=== PATIENT | female | born 1950 | race Caucasian/White ===

== ENCOUNTER → 2016-04-02 | Outpatient (CLI) | payer MEDICARE ==
[~2016-04-02] MED LIST: ACHD5005 PO; ACHYD1T PO; AMOX500C2 PO; AUGMENTIN PO; AZIT-21 PO; BENZ200C25 PO; BLAC20TA PO; Berberine; Black Cohosh PO; CEFD300C3 PO; DCS100C PO; EST.625T PO; EST30C PV; ESTR0.3T PO; FURO20TA4 PO; GINK120C PO; HCT25T PO; HYDR-34 PO; HYDR-3454 PO; HYDR-3583 PO; IBP800T PO; LEVO500T69 PO; LSRT50T PO; LVF500T PO; MTF500T PO; POTA10CA43 PO; RIVA15TA PO; RIVA20TA4 PO; TRM50T PO
--- NOTE | 2016-04-03 09:22 | Diagnostic Imaging Report ---
EXAMINATION: Bilateral screening mammogram with a Computer Aided Detection (CAD) system. INDICATION: Screening. PERSONAL HISTORY: No current complaints stated on the questionnaire. COMPARISON: 10/22/2014. FINDINGS: The breasts are composed of scattered fibroglandular densities. There are scattered benign-appearing calcifications. Allowing for technique and positional differences, no suspicious change is seen. IMPRESSION: No significant change. ACR BI-RADS Category 2: Benign findings. Result letter will be mailed to the patient. Note: At least 10% of breast cancer is not imaged by mammography. Dictated by: Dictated on workstation # [id number]
== END ==
LOC: RAD 14:43
PROVIDERS: ATTEND Nurse Practitioner Family
DX: Z12.31 Encounter for screening mammogram for malignant neoplasm of breast (principal)

== ENCOUNTER 2016-04-12 06:18 | Outpatient (CLI) | payer MEDICARE ==
[~2016-04-12] VITALS: Ht 180.3 cm; Wt 99.8 kg
== END 2016-04-12 13:36 ==
LOC: PREOP 06:18
PROVIDERS: ATTEND Surgery
DX: Z01.818 Encounter for other preprocedural examination (principal); Z80.0 Family history of malignant neoplasm of digestive organs

== ENCOUNTER 2016-04-16 10:01 | Day surgery (SDC) | payer MEDICARE ==
[~2016-04-16] VITALS: Ht 180.3 cm; Wt 99.8 kg
[2016-04-16] MEDS ORDERED: NS IV 500 ML 500 ML ONE (10:06)
[2016-04-16 10:51] VITALS: BP 167/77
[2016-04-16] MEDS ORDERED: FLUMAZENIL (ROMAZICON) 0.1 MG/ML 5 ML VIAL INJ PRN (11:00)
[2016-04-16] MEDS ORDERED: NALOXONE 0.4 MG/ML 1 ML (NARCAN) VIAL IVP PRN (11:00)
[2016-04-16] MEDS ORDERED: NS IV 500 ML 500 ML IV PRN (11:00)
[2016-04-16] MEDS ORDERED: MIDAZOLAM 2 MG/2 ML (VERSED) VIAL ONE ×4 (11:04→11:25)
[2016-04-16] MEDS ORDERED: fentaNYL INJECTION 100 MCG/2 ML AMP ONE ×2 (11:04→11:25)
[2016-04-16] MEDS: fentaNYL INJECTION 100 MCG/2 ML AMP IVP PRN ×3 (11:10→11:18)
[2016-04-16] MEDS: MIDAZOLAM 2 MG/2 ML (VERSED) VIAL IVP PRN ×3 (11:11→11:20)
--- NOTE | 2016-04-16 11:19 | Pre-Op Note & Conscious Sedat ---
Pre-Operative Progress Note H&P Reviewed The H&P was reviewed, patient examined and no changes noted. Date H&P Reviewed: Apr 16, 2016 Time H&P Reviewed: 11:19 Pre-Op Diagnosis: screening. Family history of colon cancer Conscious Sedation Pre-Proced ASA Class: 2 Airway Mallampati Classification: ([place] appropriate class) I. II. III, IV Lungs Heart ASA score ASA 1: a normal healthy patient ASA 2: a patient with a mild systemic disease (mid diabetes, controlled hypertension, obesity ASA 3: a patient with a severe systemic disease that limits activity (angina , COPD, prior Myocardial infarction) ASA 4: a patient with an incapacitating disease that is a constant threat to life (CHF, renal failure) ASA 5: a moribund patient not expected to survive 24 hrs. (ruptured aneurysm) ASA 6: a declared brain patient whose organs are being harvested. For emergent operations, add the letter E after the classification Grade 2 Sedation Plan: Discussed options with patient/fam Note The patient is an appropriate candidate to undergo the planned procedure, sedation, and anesthesia. The patient immediately re-assessed prior to indication. LUKE CANALES MD Apr 16, 2016 11:19 am
--- NOTE | 2016-04-16 11:31 | Discharge Inst-Simple/Standard ---
Discharge Inst-Standard Discharge Medications New, Converted or Re-Newed RX: Other Patient Instructions/Follow Up Plan of Care/Instructions/FU: repeat colonoscopy in 5 years Activity as Tolerated: Yes Discharge Diet: ADA Diet LUKE CANALES MD Apr 16, 2016 11:31
--- NOTE | 2016-04-16 11:31 | Progress Note-Post Operative ---
Post-Operative Progess Note Pre-Operative Diagnosis screening. Family history of colon cancer Post-Operative Diagnosis normal exam Post-Op Procedure Note Date of Procedure: Apr 16, 2016 Name of Procedure: colonoscopy to cecum Anesthesia Type sedation LUKE CANALES MD Apr 16, 2016 11:31
[2016-04-16 12:00] VITALS: BP 143/73
[2016-04-16 12:30] VITALS: BP 142/67
[2016-04-16 12:40] VITALS: BP 142/67
--- NOTE | 2016-04-16 12:53 | PROCEDURE REPORT ---
PROCEDURE PHYSICIAN: LUKE CANALES DATE OF PROCEDURE: 04/16/2016 PROCEDURE: Screening colonoscopy. SURGEON: Ab INDICATION FOR THE PROCEDURE: This lady came in for screening colonoscopy. She reported a positive family history of colon cancer. An informed consent was obtained after reviewing the procedure in detail. . DESCRIPTION OF PROCEDURE: She was placed in left lateral decubitus position and her vital signs were monitored. Conscious sedation was achieved using Versed and fentanyl. Digital rectal examination was unremarkable. The colonoscope was then introduced into the rectum and advanced all the way up to the cecum. The scope was then withdrawn slowly and the mucosa examined in a systematic fashion. There was no abnormality. She tolerated the procedure well and was taken back to the nursing area in a stable condition. IMPRESSION: 1. Normal screening colonoscopy. 2. Positive family history. Recommend repeating in 5 years. Job ID: [id number] Dictated Date: 04/16/2016 11:30:46 [employer] Date: 04/16/2016 12:50:17 / [facility]ARBER
== END 2016-04-16 12:40 | disposition home or self-care (01) ==
LOC: ENDO 10:01
PROVIDERS: ATTEND Surgery
DX: Z12.11 Encounter for screening for malignant neoplasm of colon (principal); Z80.0 Family history of malignant neoplasm of digestive organs; E11.9 Type 2 diabetes mellitus without complications
CPT/HCPCS: 82962

== ENCOUNTER → 2016-04-24 | Outpatient (CLI) | payer MEDICARE ==
--- NOTE | 2016-04-24 13:16 | Diagnostic Imaging Report ---
PROCEDURE: US Thyroid. TECHNIQUE: Multiple real-time grayscale images were obtained of the thyroid in various projections. INDICATION: Multinodular goiter. COMPARISON: Exam compared with study of 10/22/2014. FINDINGS: Right thyroid lobe measured 5.9 x 3.1 x 2.5 cm, unchanged from prior. Left lobe is 6.1 x 2.2 x 1.6 cm, increased from prior when it measured 5.1 x 1.6 x 2.0 cm. There are multiple bilateral thyroid nodules, the largest mass in the right lobe measures 2.5 x 2.0 cm today and does show some punctate calcifications. It is solid although heterogeneous. It previously measured 2.1 x 2.0 cm, slightly increased. The midline isthmic nodule of 1.9 cm long axis is unchanged. The largest left lobe mass in glf-ri-pteux pole is 2.3 x 1.8 x 1.8 cm, previously measured 2.0 x 0.9 x 1.5 cm. It shows mixed solid and cystic components. IMPRESSION: Increased thyromegaly in the left lobe. The largest bilateral thyroid nodules measured a few millimeter and larger than on prior but no new dominant lesion. Midline isthmic mass is unchanged. Additional smaller lesions have not appreciably changed. Dictated by: Dictated on workstation # [id number]
== END ==
LOC: RAD 11:09
PROVIDERS: ATTEND Otolaryngology Otolaryngology/Facial Plastic Surgery
DX: E04.2 Nontoxic multinodular goiter (principal)
CPT/HCPCS: 76536

== ENCOUNTER → 2016-10-08 | Outpatient (CLI) | payer MEDICARE | LOC: CARD 15:56 | PROVIDERS: ATTEND Nurse Practitioner Family | DX: R07.89 Other chest pain (principal); R05 Cough | CPT/HCPCS: 93005 ==

== ENCOUNTER → 2016-12-06 | Outpatient (CLI) | payer MEDICARE | LOC: CARD 10:50 | PROVIDERS: ATTEND Internal Medicine Cardiovascular Disease | DX: R06.02 Shortness of breath (principal); I10 Essential (primary) hypertension; I82.409 Acute embolism and thrombosis of unspecified deep veins of unspecified lower extremity; J98.4 Other disorders of lung; G47.33 Obstructive sleep apnea (adult) (pediatric); G47.10 Hypersomnia, unspecified | CPT/HCPCS: 93306 ==

== ENCOUNTER → 2016-12-17 | Outpatient (CLI) | payer MEDICARE ==
[~2016-12-17] VITALS: Ht 177.8 cm; Wt 107.5 kg
[~2016-12-17] MED LIST changes: +CATHETER FLUSH 10 ML SYR IV PRN; +REGADENOSON 0.4 MG/5 ML SYR (LEXISCAN) IV ONE
[2016-12-17 09:49] VITALS: BP 138/82
== END ==
LOC: CARD 08:21
PROVIDERS: ATTEND Internal Medicine Cardiovascular Disease
DX: R06.02 Shortness of breath (principal); I10 Essential (primary) hypertension; J98.4 Other disorders of lung; G47.33 Obstructive sleep apnea (adult) (pediatric)
CPT/HCPCS: 78452; 93017

== ENCOUNTER → 2017-04-15 | Outpatient (CLI) | payer MEDICARE ==
[~2017-04-15] MED LIST changes: -CATHETER FLUSH 10 ML SYR IV PRN; -REGADENOSON 0.4 MG/5 ML SYR (LEXISCAN) IV ONE
--- NOTE | 2017-04-15 16:03 | Diagnostic Imaging Report ---
Indication: Routine screening. Comparison: Comparison is made with prior mammogram from 04/02/2016 and 10/22/2014. Findings: Scattered fibroglandular densities are noted throughout both breasts. The parenchymal pattern is stable. No dominant mass or malignant-appearing microcalcifications are seen. There are benign calcifications in both breasts. The axillae are unremarkable. Impression: BI-RADS category 2. No mammographic features suspicious for malignancy are identified. ACR BI-RADS Category 2: Benign findings. Result letter will be mailed to the patient. Note: At least 10% of breast cancer is not imaged by mammography. Dictated by: Dictated on workstation # [id number]
== END ==
LOC: RAD 15:14
PROVIDERS: ATTEND Family Medicine
DX: Z12.31 Encounter for screening mammogram for malignant neoplasm of breast (principal)
CPT/HCPCS: 77067

== ENCOUNTER → 2018-04-29 | Outpatient (CLI) | payer MEDICARE ==
--- NOTE | 2018-04-29 16:22 | Diagnostic Imaging Report ---
INDICATION: Routine screening. COMPARISON: 04/15/2017 and 04/02/2016. TECHNIQUE: 2D and 3D bilateral screening mammography was performed with CAD. FINDINGS: Scattered fibroglandular densities are identified bilaterally. There is a small nodular density noted in the lower outer aspect of the right breast which appears new when compared to the prior exam. This appears to be fairly well circumscribed and likely benign. Even so, additional views are recommended. Scattered benign calcifications are seen in both breasts. No spiculated mass is identified. No malignant appearing microcalcifications are identified. The axillae are unremarkable. IMPRESSION: New small nodular density in the lower outer right breast. Additional views are recommended for further evaluation. ACR BI-RADS Category 0: Incomplete. (Needs additional imaging evaluation). Result letter will be mailed to the patient. Note: At least 10% of breast cancer is not imaged by mammography. Dictated by: Dictated on workstation # [id number]
== END ==
LOC: RAD 13:28
PROVIDERS: ATTEND Nurse Practitioner Family
DX: Z12.31 Encounter for screening mammogram for malignant neoplasm of breast (principal); R92.8 Other abnormal and inconclusive findings on diagnostic imaging of breast
CPT/HCPCS: 77067

== ENCOUNTER → 2018-05-02 | Outpatient (CLI) | payer MEDICARE ==
--- NOTE | 2018-05-02 11:33 | Diagnostic Imaging Report ---
INDICATION: Right breast density. Patient presents for additional views. COMPARISON: Prior screening mammogram from 04/29/2018. TECHNIQUE: Unilateral right 2D and 3D diagnostic mammography was performed. This includes spot compression CC and ML as well as conventional 90 degree lateral views. FINDINGS: The additional views confirm a tiny circumscribed ovoid nodular density in the lower outer right breast approximately 10 cm from the nipple. This has fairly benign features and may represent a small cyst or intra-parenchymal lymph node. No suspicious calcifications are seen. IMPRESSION: Tiny circumscribed nodule in the lower outer right breast 10 cm from the nipple. This has fairly benign features. Even so, further evaluation of the right breast with ultrasound is recommended and will be performed today. ACR BI-RADS Category 0: Incomplete. (Needs additional imaging evaluation). Result letter will be mailed to the patient. Note: At least 10% of breast cancer is not imaged by mammography. Dictated by: Dictated on workstation # [id number]
--- NOTE | 2018-05-02 11:41 | Diagnostic Imaging Report ---
INDICATION: Right breast density. This study is performed for further evaluation. COMPARISON: Recent diagnostic study performed earlier this same day. FINDINGS: Sonographic interrogation of the lower outer right breast was performed. There are tiny circumscribed hypoechoic nodules at the 8:30 location, 10 cm from the nipple. In aggregate, these measure approximately 4 mm x 5 mm x 3 mm. This appears to represent a tiny cluster of cysts. This does correlate in size, appearance, and location to the density noted on the mammogram. No other abnormalities are seen. IMPRESSION: Probable tiny cluster of cysts at the 8:30 location of the right breast corresponding to the mammographic density. The patient may return to routine annual screening mammography. ACR BI-RADS Category 2: Benign findings. Result letter will be mailed to the patient. Note: At least 10% of breast cancer is not imaged by mammography. Dictated by: Dictated on workstation # [id number]
== END ==
LOC: RAD 10:27
PROVIDERS: ATTEND Nurse Practitioner Family
DX: R92.2 Inconclusive mammogram (principal)

== ENCOUNTER → 2018-07-07 | Outpatient (CLI) | payer MEDICARE | LOC: LAB 19:41 | PROVIDERS: ATTEND Nurse Practitioner Family | DX: R19.7 Diarrhea, unspecified (principal) | CPT/HCPCS: 82274; 87015; 87045; 87046; 87324; 87328; 87329; 87449; 87899 ==

== ENCOUNTER → 2019-01-05 | Outpatient (CLI) | payer MEDICARE ==
--- NOTE | 2019-01-05 09:19 | Diagnostic Imaging Report ---
EXAMINATION: CT Chest without contrast. TECHNIQUE: Multiple contiguous axial images were obtained through the chest without the use of intravenous contrast. All CT scans use one or more of the following dose optimizing techniques: automated exposure control, MA and/or KvP adjustment based on a patient size and exam type, or iterative reconstruction. HISTORY: DYSPNEA COMPARISON: 09/04/2013 FINDINGS: The lungs are clear without edema or pneumonia. No pleural effusion or pneumothorax. No suspicious nodules. Heart size is normal. No pericardial effusion. Aorta is normal in caliber. There is no axillary or supraclavicular lymphadenopathy. There is no mediastinal lymphadenopathy. Liver is mildly steatotic. There are no suspicious osseus lesions. IMPRESSION: 1. Clear lungs. Dictated by: Dictated on workstation # [id number]
== END ==
LOC: RAD 08:32
PROVIDERS: ATTEND Nurse Practitioner Family
DX: J45.909 Unspecified asthma, uncomplicated (principal); J98.4 Other disorders of lung
CPT/HCPCS: 71250

== ENCOUNTER → 2019-05-08 | Outpatient (CLI) | payer MEDICARE ==
--- NOTE | 2019-05-11 10:17 | Diagnostic Imaging Report ---
INDICATION: Routine screening. Comparison is made with prior mammogram from 04/29/2018 and 04/15/2017. 2-D and 3-D bilateral screening mammography was performed with CAD. Scattered fibroglandular densities are identified bilaterally. There are benign calcifications bilaterally. Fibronodular parenchyma pattern appears stable. No new mass or malignant appearing microcalcifications are seen. No malignant appearing microcalcifications are seen. Axillae are unremarkable. IMPRESSION: BI-RADS Category 2 No mammographic features suspicious for malignancy are identified. ACR BI-RADS Category 2: Benign findings. Result letter will be mailed to the patient. Note: At least 10% of breast cancer is not imaged by mammography. Dictated by: Dictated on workstation # [id number]
== END ==
LOC: RAD 10:45
PROVIDERS: ATTEND Nurse Practitioner Family
DX: Z12.31 Encounter for screening mammogram for malignant neoplasm of breast (principal)
CPT/HCPCS: 77067

== ENCOUNTER → 2020-05-17 | Outpatient (CLI) | payer MEDICARE ==
--- NOTE | 2020-05-17 12:45 | Diagnostic Imaging Report ---
INDICATION: Routine screening. COMPARISON: 05/08/2019 and 04/29/2018. TECHNIQUE: 2D and 3D bilateral screening mammography was performed with CAD. FINDINGS: Scattered fibroglandular densities are identified bilaterally. A fibronodular parenchymal pattern is again noted. This appears to be fairly stable. There are scattered benign calcifications. No dominant mass or malignant appearing microcalcifications are seen. The axillae are unremarkable. IMPRESSION: No mammographic features suspicious for malignancy are identified. ACR BI-RADS Category 2: Benign findings. Result letter will be mailed to the patient. Note: At least 10% of breast cancer is not imaged by mammography. Dictated by: Dictated on workstation # [id number]
== END ==
LOC: RAD 09:45
PROVIDERS: ATTEND Nurse Practitioner Family
DX: Z12.31 Encounter for screening mammogram for malignant neoplasm of breast (principal)
CPT/HCPCS: 77063; 77067

== ENCOUNTER → 2020-10-18 | Outpatient (CLI) | payer MEDICARE | LOC: CARD 11:00 | PROVIDERS: ATTEND Physician Assistant | DX: I35.1 Nonrheumatic aortic (valve) insufficiency (principal); I10 Essential (primary) hypertension | CPT/HCPCS: 93306 ==

== ENCOUNTER → 2020-12-14 | Outpatient (CLI) | payer MEDICARE ==
[~2020-12-14] VITALS: Ht 177 cm; Wt 100.0 kg
[~2020-12-14] MED LIST changes: +CATHETER FLUSH 10 ML SYR IV PRN; +REGADENOSON 0.4 MG/5 ML SYR (LEXISCAN) IV ONE
[2020-12-14 09:18] VITALS: BP 167/88
[2020-12-14 09:21] VITALS: BP 171/77
--- NOTE | 2020-12-14 12:51 | Cardiology Stress Test Report ---
Stress Test Report Date of Procedure/Referring: Date of Procedure: Dec 14, 2020 Magdalena Silvestre Admitting Physician Kyara Smith MD Indications: HTN Baseline Heart Rate: 65 Baseline Blood Pressure: Blood Pressure Systolic: 171 Blood Pressure Diastolic: 77 Baseline Vitals Vital Signs Date Time Temp Pulse Resp B/P (MAP) Pulse Ox O2 Delivery O2 Flow Rate FiO2 12/14/20 09:18 65 167/88 (114) 12/14/20 09:21 19 99 Room Air Baseline EKG: Baseline EKG: NSR Summary After explaining the procedure to the patient, she signed a consent and then brought to the stress nuclear laboratory. Patient received 0.4 mg Lexiscan for stress test, ECG, heart rate and blood pressure were monitored continuously. Resting and stress dose of radio tracer were injected, imaging was acquired and reviewed in short axis, horizontal long axis and vertical long axis views. TID: 0.98 SSS: 5 SDS: 5 EF: 78 1. Patient tolerated Lexiscan well 2. Breast attenuation affecting the quality of the images, there is mild d ecrease uptake at the mid to apical inferior wall with mild reversibility 3. Normal left ventricular size, EF 78% RIVAS LUGO MD Dec 14, 2020 12:51
== END ==
LOC: CARD 07:45
PROVIDERS: ATTEND Physician Assistant
DX: I10 Essential (primary) hypertension (principal)
CPT/HCPCS: 78452; 93017; A9502

== ENCOUNTER 2020-12-28 09:00 | Day surgery (SDC) | payer MEDICARE ==
[~2020-12-28] VITALS: Ht 180 cm; Wt 102.0 kg
[2020-12-28 07:23] VITALS: BP 158/95
[2020-12-28 07:33] LABS: HEMATOCRIT 47 % (35-52); HEMOGLOBIN 15.4 g/dL (11.5-16.0); MEAN CORPUSCULAR HEMOGLOBIN 29 pg (25-34); MEAN CORPUSCULAR HGB CONC 33 g/dL (32-36); MEAN CORPUSCULAR VOLUME 88 fL (80-99); MEAN PLATELET VOLUME 9.7 fL (9.0-12.2); PLATELET COUNT 271 10^3/uL (130-400); WHITE BLOOD COUNT 7.1 10^3/uL (4.3-11.0)
[2020-12-28 07:33] LABS: BILIRUBIN,URINE NEGATIVE (NEGATIVE); CLARITY,URINE CLEAR; COLOR,URINE YELLOW; GLUCOSE, URINE (UA) 3+ (NEGATIVE); KETONES,URINE NEGATIVE (NEGATIVE); LEUKOCYTE ESTERASE ,URINE NEGATIVE (NEGATIVE); NITRITE,URINE POSITIVE (NEGATIVE); PH,URINE 5.5 (5-9); PROTEIN,URINE NEGATIVE (NEGATIVE)
[2020-12-28 07:44] LABS: INR 0.9 (0.8-1.4); PROTHROMBIN TIME PATIENT 12.5 SEC (12.2-14.7)
[2020-12-28 07:46] LABS: BACTERIA,URINE FEW /HPF; SQUAMOUS EPITHELIAL CELL,UR 0-2 /HPF
[2020-12-28 08:10] LABS: ALBUMIN 4.2 GM/DL (3.2-4.5); BILIRUBIN,TOTAL 1.2 MG/DL (0.1-1.0); CALCIUM 9.5 MG/DL (8.5-10.1); CREATININE SERUM 1.04 MG/DL (0.60-1.30); POTASSIUM 4.2 MMOL/L (3.6-5.0)
--- NOTE | 2020-12-28 08:31 | Diagnostic Imaging Report ---
INDICATION: Chest pain, pre-heart catheter Portable chest 7:48 AM Heart size and pulmonary vascularity are normal. Lungs are clear. There are no effusions or pneumothoraces. IMPRESSION: No acute abnormalities in the chest. Dictated by: Dictated on workstation # [id number]
[~2020-12-28 09:00] MED LIST changes: +ACET325T38 PO; +ASPI-1238 PO; +BERBERINE PO; -CATHETER FLUSH 10 ML SYR IV PRN; +EMPA10TA PO; +FLUT1DIS26 IH; +HEParin (CATH LAB) 2,000 ML IV ONE; +HEParin 1000 UNIT/ML (10ML VIAL) FOR BOLUS ONE; +LACT1CAP81 PO; +LIDOCAINE 1% INJ 20 ML 20 ML VIAL ONE; +LINA5TAB PO; +LISI10TA25 PO; +MAGN400C PO; +METH5TAB5 PO; +MIDAZOLAM 5 MG/5 ML (VERSED) VIAL ONE; +NITRO DRIP 25000 MCG/D5W 250 ML IV ONE; +NS IV 1000 ML 1,000 ML IV SCH; +NS IV 1000 ML 1,000 ML ONE; -REGADENOSON 0.4 MG/5 ML SYR (LEXISCAN) IV ONE; +UBID100C17 PO; +VERAPAMIL 5 MG/2 ML (CALAN) VIAL IV ONE; +[UNRECOGNIZED DRUG - OTHER] PO; +diphenhydrAMINE 50 MG/ML INJ (BENADRYL) ONE; +fentaNYL INJ 100 MCG/2 ML AMP ONE; +methylPREDNISolone 125 MG (Solu-MEDROL) VIAL ONE
--- NOTE | 2020-12-28 09:16 | Conscious Sedation/ASA ---
Conscious Sedation Pre-Proced Time 09:16 ASA Score 3 For ASA 3 and 4: Consider anesthesia and medical clearance. Also, for patients with a history of failed moderate sedation consider anesthesia. Airway Lungs Heart ASA score ASA 1: a normal healthy patient ASA 2: a patient with a mild systemic disease (mid diabetes, controlled hypertension, obesity x ASA 3: a patient with a severe systemic disease that limits activity (angina, COPD, prior Myocardial infarction) ASA 4: a patient with an incapacitating disease that is a constant threat to life (CHF, renal failure) ASA 5: a moribund patient not expected to survive 24 hrs. (ruptured aneurysm) ASA 6: a declared brain- patient whose organs are being harvested. For emergent operations, add the letter E after the classification Mallampati Classification Grade 3 Sedation Plan Analgesia, Amnesia, Plan communicated to team members, Discussed options with patient/fam, Discussed risks with patient/fam The patient is an appropriate candidate to undergo the planned procedure, sedation, and anesthesia. The patient immediately re-assessed prior to indication. RIVAS LUGO MD Dec 28, 2020 09:16
--- NOTE | 2020-12-28 09:18 | Discharge Inst-Post CATH ---
Discharge Inst-CATH/EP Problems Reviewed?: Yes Post Cardiac Cath/EP D/C Inst Follow Up/Plan Appointment with Dr. Rivero's office in 2 to 4 weeks <b>CARDIAC CATH/EP PROCEDURE DISCHARGE INSTRUCTIONS</b> ACTIVITY * Go Home directly and rest. * Limit activity of the leg (or wrist if it was used) for 7 days including aer obics, swimming, jogging, bicycling, etc. * Restrict stair-climbing for 7 days if possible, if not, climb up with your non-cath leg, then bring together on the same step. * Avoid lifting, pushing, pulling or excessive movement of the affected extremi ty for 7 days. * Customary sexual activity may be resumed after 2 days-use caution not to use a position that strains or causes pain to the affected extremity. * No driving for 24 hours. * NO SMOKING. * Avoid straining for bowel movements for 7 days. * Gentle walking on level ground is allowed. * Returning to work will depend on the type of procedure and the results. Your doctor will discuss this with you. CALL YOUR DOCTOR FOR ANY OF THE FOLLOWING: *If bleeding from the puncture site occurs- Apply gentle pressure to site with clean cloth and call your doctor or EMS. * If a knot or lump forms under the skin, increases in size, or causes pain. * If bruising appears to be worsening or moving further down your leg instead of disappearing. * Temperature above 101 F. CARE OF YOUR GROIN INCISION; * Bruising or purple discoloration of the skin near the puncture site is common. * You may shower only, no bathtub bathing for 5 days. Be careful to avoid slipping as your leg may feel stiff. * If a closure device was used on your femoral artery, please see the attached guide regarding care of the device and your leg. * Leave dressing on FOR 24 hours. CARE OF YOUR WRIST INCISION; * Bruising or purple discoloration of the skin near the puncture site is common. * You may shower. * DO NOT submerge wrist. * Leave dressing on FOR 24 hours. RIVAS RIVERO MD Dec 28, 2020 09:17
--- NOTE | 2020-12-28 09:20 | Cardiac Cath Report ---
Cardiac Cath Report Physician (s)/Account Analyst (s) Physician RIVAS LUGO MD Pre-Procedure Diagnosis Pre-Procedure Diagnosis: Coronary artery disease Post-Procedure Note Procedure Start Date: Dec 28, 2020 Name of Procedure: Left heart catheterization Findings/Procedure Note PROCEDURE NOTE: 70-year-old lady with multiple risk factors for coronary artery disease, had an abnormal stress test, scheduled for cardiac catheterization possible PTCA. After explaining the procedure to the patient, all pros and cons were explained, all questions were answered. The patient signed the consent and then she was placed on the cardiac catheterization laboratory. Groin was prepped SL fashion local anesthesia was used. Sheath placed in the right radial artery, [place] catheter advanced to the left ventricular cavity, pressure was measured, pullb ack LV to aorta was done, engaged the right and left coronary system and selective angiogram was done. At the end of the procedure the sheath was removed. Vascular band used FINDINGS: Hemodynamics LV 128/21, end-diastolic pressure of 21 Aorta 131/73 mean of 100 ANATOMY: Left Main is free of obstructive disease Left Anterior Descending had mild disease at the midportion nonobstructive disease Left Circumflex has mild disease nonobstructive disease Right Coronary Artery is dominant artery with mild disease nonobstructive disease LV Gram was not done, pressure was measured CONCLUSION: 1. Mild coronary artery disease nonobstructive disease 2. Mildly elevated left ventricular end-diastolic pressure DISCUSSION AND RECOMMENDATION: Medical therapy is recommended no intervention is warranted Anesthesia Type: Conscious Sedation Estimated blood loss (mL): 5 ml Contrast Amount: 20 ml Total Radiation Dose: 275 mGy Post-Procedure Diagnosis Post-operative diagnosis: Chest pain Coronary artery disease Hypertension Hyperlipidemia RIVAS LUGO MD Dec 28, 2020 09:20
[2020-12-28] MEDS ORDERED: NS IV 1000 ML 1,000 ML IV SCH (09:30)
[2020-12-28 09:50] VITALS: BP 121/69
[2020-12-28 12:00] VITALS: BP 138/75
== END 2020-12-28 12:50 | disposition home or self-care (01) ==
LOC: CATH 09:00 → CSD 09:50 → CATH 12:50
PROVIDERS: ATTEND Internal Medicine Cardiovascular Disease
DX: I25.10 Atherosclerotic heart disease of native coronary artery without angina pectoris (principal); I10 Essential (primary) hypertension; E78.5 Hyperlipidemia, unspecified; E11.9 Type 2 diabetes mellitus without complications; M19.90 Unspecified osteoarthritis, unspecified site; E04.2 Nontoxic multinodular goiter; G47.33 Obstructive sleep apnea (adult) (pediatric); I65.23 Occlusion and stenosis of bilateral carotid arteries; Z86.718 Personal history of other venous thrombosis and embolism; Z79.899 Other long term (current) drug therapy; Z79.84 Long term (current) use of oral hypoglycemic drugs
CPT/HCPCS: 71045; 80053; 80061; 81000; 85027; 85610; 85730; 87077; 87081; 87088; 87186; 93458; C1894; 36415

== ENCOUNTER → 2021-01-19 | Outpatient (CLI) | payer MEDICARE ==
[~2021-01-19] MED LIST changes: -HEParin (CATH LAB) 2,000 ML IV ONE; -HEParin 1000 UNIT/ML (10ML VIAL) FOR BOLUS ONE; -LIDOCAINE 1% INJ 20 ML 20 ML VIAL ONE; -MIDAZOLAM 5 MG/5 ML (VERSED) VIAL ONE; -NITRO DRIP 25000 MCG/D5W 250 ML IV ONE; -NS IV 1000 ML 1,000 ML IV SCH; -NS IV 1000 ML 1,000 ML ONE; -VERAPAMIL 5 MG/2 ML (CALAN) VIAL IV ONE; -diphenhydrAMINE 50 MG/ML INJ (BENADRYL) ONE; -fentaNYL INJ 100 MCG/2 ML AMP ONE; -methylPREDNISolone 125 MG (Solu-MEDROL) VIAL ONE
--- NOTE | 2021-01-19 16:05 | Diagnostic Imaging Report ---
INDICATION: Left breast pain around the nipple. Correlation is made with prior mammogram 05/17/2020 and 05/08/2019. Unilateral left 2-D and 3-D diagnostic mammography was performed with CAD. Left breast is heterogeneously dense, limiting the sensitivity of mammography. There are benign calcifications present. No mass or malignant-appearing microcalcifications are seen. Left axilla is unremarkable. IMPRESSION: No mammographic features suspicious for malignancy are identified. Even so, sonographic interrogation of the area of pain in the left breast is recommended and will be performed today. BI-RADS 0 ACR BI-RADS Category 0: Incomplete. (Needs additional imaging evaluation). Result letter will be mailed to the patient. Note: At least 10% of breast cancer is not imaged by mammography. Dictated by: Dictated on workstation # [id number]
--- NOTE | 2021-01-19 16:06 | Diagnostic Imaging Report ---
INDICATION: Pain surrounding the left nipple. COMPARISON: Correlation is made with the diagnostic mammogram from earlier this same day. FINDINGS: Sonographic interrogation of the area of pain surrounding the left nipple was performed. No sonographic abnormality is identified at the area of pain. No solid or cystic mass is detected. There is a simple appearing cyst at the 8 o'clock location 4 cm from the nipple measuring 8 mm x 6 mm x 6 mm. IMPRESSION: No abnormality is identified at the area of pain surrounding the left nipple. There is a simple cyst at the 8 o'clock location. The patient may return to routine annual screening mammography. ACR BI-RADS Category 2: Benign findings. Dictated by: Dictated on workstation # [id number]
== END ==
LOC: RAD 13:15
PROVIDERS: ATTEND Nurse Practitioner Family
DX: N60.02 Solitary cyst of left breast (principal)
CPT/HCPCS: 76642; 77065; G0279

== ENCOUNTER → 2022-04-09 | Outpatient (CLI) | payer MEDICARE ==
[~2022-04-09] MED LIST changes: -METH5TAB5 PO; +METH5TAB95 PO
--- NOTE | 2022-04-09 09:21 | Diagnostic Imaging Report ---
PROCEDURE: US Gallbladder. TECHNIQUE: Multiple Real-time grayscale images were obtained over the right upper quadrant in various projections. INDICATION: Elevated liver function studies. FINDINGS: The liver parenchyma appears nonfocal. The portal vein is patent and shows normal hepatopetal directional flow. The liver echotexture pattern is perhaps mildly elevated throughout, raising the question of a mild degree of fatty infiltration; however, this is equivocal. No ascites. No fluid collection. There is a substantial degree of shadowing bowel gas limiting sonographic detail. The visualized portions of the aorta and IVC are normal. The pancreas is obscured. The bile ducts are nondilated. There is no ascites. The gallbladder is normal. IMPRESSION: Limited by shadowing bowel gas. Equivocal findings for a mild degree of hepatic steatosis but no acute biliary pathology, ascites, or acute abnormalities. Dictated by: Dictated on workstation # [id number]
== END ==
LOC: RAD 08:00
PROVIDERS: ATTEND Internal Medicine Endocrinology, Diabetes & Metabolism
DX: K76.0 Fatty (change of) liver, not elsewhere classified (principal)
CPT/HCPCS: 76705